=== PATIENT | male | born 1980 | race Hispanic/Latino ===

== ENCOUNTER 2024-02-20 10:21 | Emergency (ER) | payer OTHER, SELFPAY ==
[2024-02-20 10:23] VITALS: BP 156/93
--- NOTE | 2024-02-20 10:51 | ED.MUSCINJ ---
HPI-Injury
General
Chief Complaint: Musculo-Skeletal Complaint
Source: patient
Exam Limitations: none
Time Seen by Provider: 02/20/24 10:50
Nursing documentation reviewed up to this point in time: agreed with
History of Present Illness-Injury
Is this injury a work related problem?: Yes
Is pt an associate of [facility]/[place]?: No
Initial Injury comments:
43 yo male at work an hour ago struck tip of left index finger with hammer. Laceration, bleeding, pain
Past History
Past History
ED Past Medical History: None
Social History
Living: with family
Employment: Employed
Phy Exam
Physical Exam
Physical Exam:
PHYSICAL EXAMINATION:
General: no apparent distress, not acutely ill
Neuro: alert and oriented.
Psychiatric: well kept. interactive and cooperative
Musculoskeletal: Moves with ease
Skin: Warm, pink.
Injury Course
Orders/Labs/Results
Orders:
Orders
02/20/24 10:25
Finger(s)/Thumb 2 View Lt [CR Finger(s)/thumb Min 2 Vw Lt] Urgent
Comment:
Reason For Exam: hit his index finger with a hammer
02/20/24 10:50
Cephalexin Monohydrate [Keflex] 500 mg PO NOW STA
Tetanus/Diphth/Acelpertussis [Adacel] 0.5 ml IM .ONCE ONE
Procedures
Laceration Closure
Tip of left index finger:
Status of Wound: clean
Size of Wound in cm: 2
Description of Wound Edges: flap-well vascularized
Preparation: cleaned with Betadine (Betadine soft scrub)
Anesthesia: Marcaine and Digital-Regional
Revision/Debridement: routine- no revision
Wound exploration: explored to base- no FB and no tendon involvement
Type of Closure: single layer closure and interrupted sutures
Skin Closure Material: 5-0 prolene
Number of sutures: 4
Additional information:
Antibiotic ointment, nonstick and tube gauze dressing applied
MDM/Problems Addressed
MDM/Problems Addressed:
43 yo male at work an hour ago struck tip of left index finger with hammer. Laceration, bleeding, pain
Xray left index finger initially read by this examiner, comminuted fracture of the distal phalanx, open
11:20 a.m.
Flap of fingertip almost completely avulsed. It looks viable and may reattach after sutured in place. It may simply scab up and fall off, pt informed of both scenarios.
Dressing applied, referred to Hand surgeon Dr. Tenorio in 2-3 days. No work until further instructed by him
Rx for Keflex sent to his pharmacy
I personally reviewed discharge instructions and answered all questions with [employer] [id number]
*Critical Care Note
Total Time (30-74mins, 75-104mins- exclusive of procedures): Not Applicable
ED Attending Note
-
Portions of this chart may have been created with voice recognition software.� Occasional wrong word or��sound alike� substitutions may have occurred due to the inherent limitations of voice recognition software.
Discharge Plan
Departure
Patient Disposition: Home (Routine Discharge)
Date of Disposition: 02/20/24
Time of Disposition: 11:22
Patient with high blood pressure during this ER visit?: No
Condition: Good
Discharge Problem:
Fingertip avulsion, Displaced fracture of distal phalanx of left index finger, initial encounter for open fracture
Instructions: Finger Fracture ED, Laceration Repair With Stitches ED
Prescriptions:
New
cephalexin 500 mg capsule
500 mg PO QID 7 Days Qty: 28 0RF
No Action
cephalexin 500 MG capsule
500 mg PO QID Qty: 28 0RF
Referrals:
Magan Tenorio MD [Active] - Follow up in 2-3 days
UNKNOWN - PT DOES,NOT KNOW [Family Provider] -
Activity Restrictions/Additional Instructions:
As we discussed, the numbing medicine will wear off anywhere from 2 to 12 hours from now
Tylenol or ibuprofen as needed for pain. Elevating the hand slightly higher than your heart may minimize throbbing pains.
I sent a prescription to your pharmacy for the antibiotic Keflex to take 4 times a day for 7 days. You were given a dose here today.
Call the hand orthopedic doctors office today and make an appointment for 2-4 days for wound check and dressing change
Interventions
Interventions:
*Risk Screen - Suicide Last Done: 02/20/24 10:23
*General Assessment Last Done: 02/20/24 10:23
*Neglect/Abuse Screening Last Done: 02/20/24 10:23
ED- Fall Risk Assessment Last Done: 02/20/24 11:49
*ED COVID-19 Vaccine History Last Done: 02/20/24 11:48
*Nursing Disposition Last Done: 02/20/24 11:49
ED-Musculoskeletal Assessment Last Done: 02/20/24 11:48
Discharge Date and Time
Discharge Date/Time: 02/20/24 11:50
Print Language: BELARUSIAN
[2024-02-20] MEDS: ADACEL 0.5 ML IM (11:43)
[2024-02-20] MEDS: KEFLEX 500 MG PO (11:43)
== END 2024-02-20 11:50 | disposition home or self-care (01) ==
LOC: EMR 10:21
PROVIDERS: EMERGENCY PHYSICIAN Emergency Medicine
DX: S62.631B Displaced fracture of distal phalanx of left index finger, initial encounter for open fracture (principal); W22.8XXA Striking against or struck by other objects, initial encounter; Y99.0 Civilian activity done for income or pay
CPT/HCPCS: 99283; 12001; 90471; 73140; 90715